=== PATIENT | female | born 1955 | race Caucasian/White ===

== ENCOUNTER 2016-09-04 12:44 | Inpatient (IN) | payer OTHER ==
[~2016-09-04] VITALS: Ht 162.6 cm; Wt 104.0 kg
[~2016-09-04 12:44] MED LIST: ALDACTONE25 MG PO; ALDACTONE50 MG PO; ALLOPURINOL100 MG PO; ASPIR 8181 M1 PO; ASPIR-TRIN325 M1 PO; ASPIRIN81 M1 PO; AVAPRO75 MG PO; Ascorbic Acid,Ester- PO; Aspirin E.C. PO; Aspirin PO; BACITRACIN28.4 GM TP; BENICAR HCT 201 EACH PO; BENICAR20 MG PO; BREO ELLIPTA I1 EACH IH; Benicar PO; CALCITRIOL0.25 MCG PO; CILOSTAZOL50 MG PO; CLOPIDOGREL75 MG PO; COL-RITE100 M1 PO; COLACE100 MG PO; Colace PO; Colchicine,Colcrys PO; DECARA50000 UNIT PO; Dulcolax PO; Effient PO; FERROCITE324 MG PO; FERROUS SULFAT325 MG PO; FLONASE16 G1 BOTH NARES; FOLIC ACID1 MG PO; FUROSEMIDE40 MG PO; Folvite PO; GABAPENTIN400 MG PO; GABAPENTIN800 MG PO; HABITROL,NICODE21 MG TD; HEMOCYTE324 MG PO; HYDROCHLOROTHIA25 MG PO; IRBESARTAN75 MG PO; LASIX20 MG PO; LEVAQUIN750 MG PO; LIDODERM 5% P1 PATCH TD; LISINOPRIL20 MG PO; LO-DOSE ASPIRIN81 M1 PO; LOPRESSOR25 MG PO; LORAZEPAM0.5 MG PO; Lasix PO; Lovenox SC; METOPROLOL SUC100 MG PO; METOPROLOL SUCC25 MG PO; METOPROLOL SUCC50 MG PO; METOPROLOL TART25 MG PO; METRONIDAZOLE500 MG PO; MICRO-K10 ME2 PO; MULTIVITAMIN1 EAC2 PO; Miralax, Glycolax PO; NAPROSYN500 MG PO; NEURONTIN300 MG PO; NITROGLYCERIN0.4 MG SL; NITROSTAT0.4 MG SL; Neurontin PO; OXYCODONE HCL PO; OXYCODONE HCL15 MG PO; OXYCONTIN30 MG PO; OXYCONTIN40 MG PO; Ocean Nasal 0.65% BOTH NARES; OxyCONTIN PO; PLAVIX75 MG PO; POTASSIUM CHLO10 ME4 PO; PRAVACHOL80 MG PO; PRAVASTATIN SOD80 MG PO; PREDNISONE10 MG PO; PROAIR HFA8.5 GM IH; PROMETHAZINE HC25 M1 PO; PROTONIX40 MG PO; Plavix PO; Pravachol PO; Protonix PO; Pyridoxine,Vitamin B PO; RANEXA1000 MG PO; RANEXA500 MG PO; ROCALTROL0.25 MCG PO; Senokot S,Pericolace PO; TOPROL XL25 MG PO; TOPROL XL50 MG PO; TRAMADOL HCL50 MG PO; TUMS500 MG PO; TYLENOL EXTRA500 MG PO; Theragran PO; Tylenol Extra Streng PO; VITAMIN B-6100 MG PO; VITAMIN D PO; VITAMIN D250000 UNIT PO; VITAMIN D35000 UNIT PO; VITAMIN D5000 UNIT PO; VITAMIN E400 UNIT PO; XARELTO1 EACH PO; XARELTO20 MG PO; ZESTRIL20 MG PO; Zestril,Prinivil PO; Zocor PO; oxyCODONE PO
[2016-09-04 13:31] LABS: EOSINOPHIL (%) 1.5 % (0-5); EOSINOPHIL COUNT 0.2 K/uL (0-0.3); HEMATOCRIT 31.6 % (36.0-46.0); IMMATURE GRANULOCYTE (%) 0.3 % (0.0-0.7); IMMATURE GRANULOCYTE COUNT 0.4 K/uL; LYMPHOCYTE COUNT 1.2 K/uL (1.0-2.8); MCH 29.8 PG (29.0-34.0); MCHC 31.3 G/DL (30.0-36.0); MCV 95.2 FL (83-99); MONOCYTE (%) 7.7 % (3-12); NEUTROPHIL (%) 80.9 % (45-76); PLATELET COUNT 230 K/uL (156-360); RBC DIS.WIDTH-CV 15.7 % (11.8-14.6); RBC DIS.WIDTH-SD 51.4 % (39-53); RED BLOOD COUNT 3.32 M/uL (3.80-5.20)
[2016-09-04 13:32] LABS: WHITE BLOOD COUNT 12.4 K/uL (4.1-10.2)
[2016-09-04 13:40] LABS: AMYLASE 33 IU/L (1-118); CHLORIDE 101 mEq/L (99-109); SODIUM 135 mEq/L (136-147)
[2016-09-04 13:42] LABS: GLUCOSE 121 mg/dL (70-99); INTER. NORMALIZED RATIO 1.4; PROTHROMBIN TIME 14.7 (9.2-11.2); PTT 40.6 (25-32)
[2016-09-04 13:43] LABS: ANION GAP 9 MEQ/L (2-14)
[2016-09-04 13:45] LABS: SERUM ETHYL ALCOHOL < 10 mg/dL
[2016-09-04 13:48] LABS: LIPASE 9 U/L (1.0-51.0)
[2016-09-04 13:50] LABS: GFR ESTIMATE (CALCULATED) 27 mL/min/; POTASSIUM 6.7 mEq/L (3.7-5.4); UREA NITROGEN (BUN) 40 mg/dL (9-23)
[2016-09-04 13:52] LABS: TROP-I INTERPRETATION NEGATIVE; TROPONIN-I 0.01 ng/mL (0.0-0.30)
[2016-09-04] MEDS ORDERED: METOPROLOL SUC100 MG PO (15:23)
[2016-09-04 15:25] LABS: BASE EXCESS -1.4 mEq/L (-3 to +3); BICARBONATE 28.1 mEq/L (22-26); CARBOXY HGB 1.2 % (0-5); METHEMOGLOBIN 0.6 % (0-1.5); PCO2 72 mm Hg (35-45); PO2 74 mm Hg (80-100)
[2016-09-04 15:26] LABS: COMMENTS - BLOOD GASES A+C+; DEVICE NRM; O2 FLOW 15 L/MIN; SITE RR
[2016-09-04] MEDS ORDERED: IRON325 M1 PO (15:26)
[2016-09-04] MEDS ORDERED: VITAMIN B-12250 MCG PO (15:27)
[2016-09-04] MEDS ORDERED: VITAMIN E200 UNI2 PO (15:27)
[2016-09-04 18:44] LABS: ADD MIUA? YES; BILIRUBIN NEGATIVE; BLOOD NEGATIVE; COLOR YELLOW ((YELLOW)); GLUCOSE (STRIP) NEGATIVE; KETONES NEGATIVE; LEUKOCYTES NEGATIVE; NITRITE NEGATIVE; PROTEIN (STRIP) NEGATIVE; SPECIFIC GRAVITY 1.011 (1.000-1.030); UROBILINOGEN 0.2 MG/DL (0.2-1.0)
[2016-09-04 18:52] LABS: ADD MEDTOX COMMENT Y; AMPHETAMINE NEGATIVE (500 ng/mL); BARBITURATES NEGATIVE (200 ng/mL); BENZODIAZEPINES NEGATIVE (150 ng/mL); COCAINE NEGATIVE (150 ng/mL); INTERNAL CONTROLS VALID? YES; METHADONE NEGATIVE (200 ng/mL); METHAMPHETAMINE NEGATIVE (500 ng/mL); OPIATES (MORPHINE) PRESUMPTIVE POSITIVE (100 ng/mL); OXYCODONE PRESUMPTIVE POSITIVE (100 ng/mL); PHENCYCLIDINE NEGATIVE (25 ng/mL); PROPOXYPHENE NEGATIVE (300 ng/mL); THC CANNABINOIDS NEGATIVE (50 ng/mL); TRICYCLIC ANTIDEPRESSANTS NEGATIVE (300 ng/mL)
[2016-09-04 19:16] LABS: BACTERIA 2+ /HPF; EPITHELIAL CELLS 1+ /HPF; HYALINE CASTS 0-5 /LPF; MUCUS TRACE /LPF; RED BLOOD CELLS 0-5 /HPF (0-5); UCUL ADDED? NO; WHITE BLOOD CELLS 0-5 /HPF (0-5)
[2016-09-04 19:42] LABS: ANION GAP 13 MEQ/L (2-14); CHLORIDE 103 mEq/L (99-109); CREATININE 1.6 mg/dL (0.6-1.3); GLUCOSE 119 mg/dL (70-99); ISTAT DEVICE 359068; POTASSIUM > 6.0 mEq/L (3.7-5.4); SODIUM 137 mEq/L (136-147); UREA NITROGEN (BUN) 41 mg/dL (9-23)
[2016-09-04 20:50] LABS: BASE EXCESS 4.8 mEq/L (-3 to +3); BICARBONATE 31.5 mEq/L (22-26); CARBOXY HGB 0.9 % (0-5); COMMENTS - BLOOD GASES C+; DEVICE NRBM; METHEMOGLOBIN 0.7 % (0-1.5); O2 FLOW 15 L/MIN; PCO2 57 mm Hg (35-45); PO2 92 mm Hg (80-100); SITE RB; pH 7.35 (7.35-7.45)
[2016-09-04 21:45] LABS: TROP-I INTERPRETATION INDETERMINATE; TROPONIN-I 0.47 ng/mL (0.0-0.30)
[2016-09-04 21:51] LABS: POTASSIUM 6.2 mEq/L (3.7-5.4)
[2016-09-04 22:07] LABS: TROP-I INTERPRETATION INDETERMINATE
[2016-09-04 23:00] VITALS: BP 135/71
[2016-09-04 23:01] VITALS: BP 135/71
[2016-09-04 23:15] VITALS: BP 129/71
[2016-09-04 23:30] VITALS: BP 147/66
[2016-09-04 23:37] LABS: BASE EXCESS -4.8 mEq/L (-3 to +3); BICARBONATE 27.3 mEq/L (22-26); CARBOXY HGB 1.7 % (0-5); METHEMOGLOBIN 1.1 % (0-1.5); PCO2 92 mm Hg (35-45); PO2 78 mm Hg (80-100); pH 7.08 (7.35-7.45)
[2016-09-04 23:38] LABS: DEVICE VENT; FI02 100 %; MECHANICAL RATE 12 resp/min; MODE AC; PEEP 18 CM/H20; TIDAL VOLUME 400 ML; TOTAL RESP RATE 12 resp/min
[2016-09-04 23:45] VITALS: BP 137/62
[2016-09-05] VITALS (23 sets, daily range): BP systolic 77–141; BP diastolic 33–62
[2016-09-05 00:42] LABS: METH RESISTANT S AUREUS PCR NEGATIVE (NEGATIVE)
[2016-09-05 00:45] LABS: PROBE CHECK PASS; SPECIMEN PROCESSING CONTROL PASS
[2016-09-05 02:32] LABS: BASE EXCESS 3.1 mEq/L (-3 to +3); CARBOXY HGB 1.3 % (0-5); METHEMOGLOBIN 1.3 % (0-1.5)
[2016-09-05 02:33] LABS: COMMENTS - BLOOD GASES C+; DEVICE VENT; FI02 100 %; MECHANICAL RATE 20 resp/min; MODE AC; PCO2 49 mm Hg (35-45); PEEP 18 CM/H20; PO2 96 mm Hg (80-100); SITE RR; TIDAL VOLUME 500 ML; TOTAL RESP RATE 21 resp/min; pH 7.38 (7.35-7.45)
[2016-09-05 03:34] LABS: CHLORIDE 104 mEq/L (99-109); POTASSIUM 5.5 mEq/L (3.7-5.4)
[2016-09-05 03:35] LABS: MAGNESIUM 1.8 mg/dL (1.3-2.7)
[2016-09-05 03:37] LABS: GLUCOSE 146 mg/dL (70-99)
[2016-09-05 03:38] LABS: ANION GAP 10 MEQ/L (2-14)
[2016-09-05 03:39] LABS: TOTAL BILIRUBIN 0.4 mg/dL (0.0-1.0)
[2016-09-05 03:41] LABS: ALKALINE PHOSPHATASE 82 IU/L (3-129); GFR ESTIMATE (CALCULATED) 29 mL/min/
[2016-09-05 03:42] LABS: UREA NITROGEN (BUN) 36 mg/dL (9-23)
[2016-09-05 03:45] LABS: TROP-I INTERPRETATION POSITIVE
[2016-09-05 03:48] LABS: SODIUM 142 mEq/L (136-147)
[2016-09-05 03:49] LABS: TROPONIN-I 9.15 ng/mL (0.0-0.30)
[2016-09-05 04:06] LABS: INFLUENZA A VIRAL ANTIGEN NEGATIVE; INFLUENZA B VIRAL ANTIGEN NEGATIVE
[2016-09-05 05:55] LABS: ANION GAP 12 MEQ/L (2-14); CHLORIDE 103 MEQ/L (99-109); GFR ESTIMATE (CALCULATED) 33 mL/min/; GLUCOSE 162 mg/dL (70-99); POTASSIUM 5.1 MEQ/L (3.7-5.4); SAMPLE HEMOLYSIS CHECK 0; SAMPLE ICTERIC CHECK 0; SAMPLE LIPEMIA CHECK 0; SODIUM 141 MEQ/L (136-147); UREA NITROGEN (BUN) 35 mg/dL (9-23)
[2016-09-05 05:57] LABS: HEMATOCRIT 34.2 % (36.0-46.0); MCH 28.7 PG (29.0-34.0); MCHC 30.4 G/DL (30.0-36.0); MCV 94.2 FL (83-99); MEAN PLAT.VOLUME 11.9 uM^3 (9.5-12.4); PLATELET COUNT 263 K/uL (156-360); RBC DIS.WIDTH-CV 15.7 % (11.8-14.6); RBC DIS.WIDTH-SD 53.5 % (39-53); RED BLOOD COUNT 3.63 M/uL (3.80-5.20)
[2016-09-05 06:06] LABS: WHITE BLOOD COUNT 19.3 K/uL (4.1-10.2)
[2016-09-05 10:36] LABS: MAGNESIUM 1.8 mg/dl (1.3-2.7)
[2016-09-05 11:57] LABS: BASE EXCESS 7.2 mEq/L (-3 to +3); BICARBONATE 31.2 mEq/L (22-26); CARBOXY HGB 0.7 % (0-5); METHEMOGLOBIN 1.4 % (0-1.5); PO2 81 mm Hg (80-100)
[2016-09-05 11:58] LABS: COMMENTS - BLOOD GASES NA C+; DEVICE VENT; FI02 70 %; MECHANICAL RATE 24 resp/min; MODE AC; PCO2 41 mm Hg (35-45); SITE RR; TIDAL VOLUME 400 ML; TOTAL RESP RATE 24 resp/min; pH 7.49 (7.35-7.45)
[2016-09-05 11:59] LABS: PEEP 16 CM/H20
[2016-09-05 12:49] LABS: INTER. NORMALIZED RATIO 1.3; PROTHROMBIN TIME 13.1 (9.2-11.2); PTT 35.1 (25-32)
[2016-09-05 12:58] LABS: CK-MB 50.9 ng/mL (0.0-4.9)
[2016-09-05 12:59] LABS: TROP-I INTERPRETATION POSITIVE
[2016-09-05 13:02] LABS: CREATINE KINASE 388 IU/L (1-294); TOTAL CK 388 IU/L (1-294)
[2016-09-05 13:29] LABS: TROPONIN-I 17.56 ng/mL (0.0-0.30)
[2016-09-05 17:10] LABS: POINT-OF-CARE METER ID UU14174217
[2016-09-05 23:48] LABS: POINT-OF-CARE METER ID UU13113803; POINT-OF-CARE USER ID LABHNS84
[2016-09-06] VITALS (17 sets, daily range): BP systolic 99–144; BP diastolic 41–77
[2016-09-06 03:38] LABS: CREATINE KINASE 266 IU/L (1-294); TOTAL CK 266 IU/L (1-294)
[2016-09-06 03:47] LABS: CK-MB 12.5 ng/mL (0.0-4.9)
[2016-09-06 03:54] LABS: PTT 69.6 (25-32)
[2016-09-06 05:23] LABS: POINT-OF-CARE METER ID UU14162636; POINT-OF-CARE USER ID LABHNS84
[2016-09-06 05:44] LABS: MEAN PLAT.VOLUME 12.4 uM^3 (9.5-12.4); PLATELET COUNT 268 K/uL (156-360)
[2016-09-06 06:19] LABS: TROP-I INTERPRETATION POSITIVE
[2016-09-06 06:37] LABS: HEMATOCRIT 27.7 % (36.0-46.0); MCHC 31.4 G/DL (30.0-36.0); MCV 92.3 FL (83-99); RBC DIS.WIDTH-CV 15.8 % (11.8-14.6); RBC DIS.WIDTH-SD 52.5 % (39-53); WHITE BLOOD COUNT 17.2 K/uL (4.1-10.2)
[2016-09-06 06:38] LABS: TROPONIN-I 6.82 ng/mL (0.0-0.30)
[2016-09-06 06:39] LABS: DELETE MACHINE DIFF? YES
[2016-09-06 08:09] LABS: ABS NEUTROPHIL COUNT 15.84; ANISOCYTOSIS OCC; PLAT.SUFFICIENCY ADEQUATE; TARGET CELLS RARE; USER ID CL
[2016-09-06 08:21] LABS: INTER. NORMALIZED RATIO 1.3
[2016-09-06 09:40] LABS: ANION GAP 16 MEQ/L (2-14); CHLORIDE 102 MEQ/L (99-109); CREATINE KINASE 187 IU/L (1-294); GFR ESTIMATE (CALCULATED) 33 mL/min/; GLUCOSE 165 mg/dL (70-99); MAGNESIUM 1.7 mg/dl (1.3-2.7); SAMPLE HEMOLYSIS CHECK 0; SAMPLE ICTERIC CHECK 0; SAMPLE LIPEMIA CHECK 0; SODIUM 145 MEQ/L (136-147); TOTAL CK 187 IU/L (1-294); UREA NITROGEN (BUN) 37 mg/dL (9-23)
[2016-09-06 12:00] LABS: POINT-OF-CARE METER ID UU13113731
[2016-09-07] VITALS (24 sets, daily range): BP systolic 100–145; BP diastolic 32–63
[2016-09-07 05:33] LABS: POINT-OF-CARE METER ID UU13113803
[2016-09-07 07:54] LABS: HEMATOCRIT 27.5 % (36.0-46.0); MCH 28.6 PG (29.0-34.0); MCHC 31.6 G/DL (30.0-36.0); MCV 90.5 FL (83-99); MEAN PLAT.VOLUME 11.8 uM^3 (9.5-12.4); PLATELET COUNT 259 K/uL (156-360); RBC DIS.WIDTH-CV 16.1 % (11.8-14.6); RED BLOOD COUNT 3.04 M/uL (3.80-5.20)
[2016-09-07 07:56] LABS: EOSINOPHIL (%) 0 % (0-5); IMMATURE GRANULOCYTE (%) 1.2 % (0.0-0.7); IMMATURE GRANULOCYTE COUNT 0.2 K/uL; LYMPHOCYTE COUNT 2.4 K/uL (1.0-2.8); MONOCYTE (%) 9.2 % (3-12); MONOCYTE COUNT 1.6 K/uL (0-0.8); NEUTROPHIL (%) 75.7 % (45-76); NEUTROPHIL COUNT 12.9 K/uL (1.8-6.4)
[2016-09-07 08:59] LABS: ANION GAP 14 MEQ/L (2-14); CHLORIDE 105 MEQ/L (99-109); GFR ESTIMATE (CALCULATED) 44 mL/min/; GLUCOSE 137 mg/dL (70-99); POTASSIUM 3.2 MEQ/L (3.7-5.4); SAMPLE HEMOLYSIS CHECK 0; SAMPLE ICTERIC CHECK 0; SAMPLE LIPEMIA CHECK 0; SODIUM 149 MEQ/L (136-147); UREA NITROGEN (BUN) 35 mg/dL (9-23)
[2016-09-07 09:07] LABS: MAGNESIUM 2.3 mg/dl (1.3-2.7)
[2016-09-07 11:49] LABS: POINT-OF-CARE METER ID UU13113731
[2016-09-07 15:49] LABS: ANION GAP 11 MEQ/L (2-14); CHLORIDE 102 MEQ/L (99-109); GFR ESTIMATE (CALCULATED) 41 mL/min/; GLUCOSE 155 mg/dL (70-99); POTASSIUM 3.4 MEQ/L (3.7-5.4); SAMPLE HEMOLYSIS CHECK 0; SAMPLE ICTERIC CHECK 0; SAMPLE LIPEMIA CHECK 0; SODIUM 144 MEQ/L (136-147); UREA NITROGEN (BUN) 34 mg/dL (9-23)
[2016-09-07 17:17] LABS: POINT-OF-CARE METER ID UU13113731
[2016-09-08] VITALS (24 sets, daily range): BP systolic 100–142; BP diastolic 39–98
[2016-09-08 01:00] LABS: HEMATOCRIT 26.7 % (36.0-46.0); MCH 29.4 PG (29.0-34.0); MCHC 32.2 G/DL (30.0-36.0); MCV 91.1 FL (83-99); MEAN PLAT.VOLUME 11.8 uM^3 (9.5-12.4); PLATELET COUNT 240 K/uL (156-360); RBC DIS.WIDTH-CV 15.9 % (11.8-14.6); RBC DIS.WIDTH-SD 50.3 % (39-53); RED BLOOD COUNT 2.93 M/uL (3.80-5.20); WHITE BLOOD COUNT 18.9 K/uL (4.1-10.2)
[2016-09-08 01:07] LABS: CHLORIDE 102 mEq/L (99-109); POTASSIUM 3.6 mEq/L (3.7-5.4); SODIUM 146 mEq/L (136-147)
[2016-09-08 01:11] LABS: ANION GAP 14 MEQ/L (2-14)
[2016-09-08 01:13] LABS: GFR ESTIMATE (CALCULATED) 41 mL/min/
[2016-09-08 01:14] LABS: UREA NITROGEN (BUN) 35 mg/dL (9-23)
[2016-09-08 01:17] LABS: GLUCOSE 92 mg/dL (70-99); MAGNESIUM 2.2 mg/dL (1.3-2.7)
[2016-09-08 01:54] LABS: EOSINOPHIL (%) 0.4 % (0-5); EOSINOPHIL COUNT 0.1 K/uL (0-0.3); HEMATOLOGY COMMENT 1 REV; IMMATURE GRANULOCYTE (%) 2.2 % (0.0-0.7); IMMATURE GRANULOCYTE COUNT 4.1 K/uL; LYMPHOCYTE COUNT 4.7 K/uL (1.0-2.8); MONOCYTE (%) 9.3 % (3-12); MONOCYTE COUNT 1.8 K/uL (0-0.8); NEUTROPHIL (%) 62.9 % (45-76); NEUTROPHIL COUNT 11.9 K/uL (1.8-6.4); USER ID SLU
[2016-09-08 05:45] LABS: POINT-OF-CARE METER ID UU13113748
[2016-09-08 05:51] LABS: HEMATOCRIT 26.8 % (36.0-46.0); MCH 29.1 PG (29.0-34.0); MCHC 31.7 G/DL (30.0-36.0); MCV 91.8 FL (83-99); NRBC (%) 0.5 /100 WBC (0-0); PLATELET COUNT 240 K/uL (156-360); RBC DIS.WIDTH-CV 16.2 % (11.8-14.6); RBC DIS.WIDTH-SD 53.6 % (39-53); RED BLOOD COUNT 2.92 M/uL (3.80-5.20); WHITE BLOOD COUNT 16.8 K/uL (4.1-10.2)
[2016-09-08 06:15] LABS: ANION GAP 13 MEQ/L (2-14); CHLORIDE 102 MEQ/L (99-109); GFR ESTIMATE (CALCULATED) 41 mL/min/; GLUCOSE 104 mg/dL (70-99); MAGNESIUM 1.8 mg/dl (1.3-2.7); POTASSIUM 3.8 MEQ/L (3.7-5.4); SAMPLE HEMOLYSIS CHECK 0; SAMPLE ICTERIC CHECK 0; SAMPLE LIPEMIA CHECK 0; SODIUM 146 MEQ/L (136-147); UREA NITROGEN (BUN) 33 mg/dL (9-23)
[2016-09-08 10:20] LABS: EOSINOPHIL (%) 0.9 % (0-5); EOSINOPHIL COUNT 0.2 K/uL (0-0.3); HEMATOLOGY COMMENT 1 SMEAR COMPATIBLE; IMMATURE GRANULOCYTE (%) 2.4 % (0.0-0.7); IMMATURE GRANULOCYTE COUNT 0.4 K/uL; LYMPHOCYTE COUNT 4.4 K/uL (1.0-2.8); MONOCYTE (%) 8.3 % (3-12); MONOCYTE COUNT 1.4 K/uL (0-0.8); NEUTROPHIL (%) 62.2 % (45-76); NEUTROPHIL COUNT 10.4 K/uL (1.8-6.4); USER ID STC
[2016-09-08 13:25] LABS: POINT-OF-CARE METER ID UU14174217
[2016-09-08 17:49] LABS: POINT-OF-CARE METER ID UU13113748
[2016-09-09] VITALS (21 sets, daily range): BP systolic 49–126; BP diastolic 32–62
[2016-09-09 00:22] LABS: POINT-OF-CARE METER ID UU14162636
[2016-09-09 05:57] LABS: HEMATOCRIT 27.1 % (36.0-46.0); MCH 29.9 PG (29.0-34.0); MCHC 31.7 G/DL (30.0-36.0); MCV 94.1 FL (83-99); MEAN PLAT.VOLUME 11.9 uM^3 (9.5-12.4); PLATELET COUNT 210 K/uL (156-360); RBC DIS.WIDTH-CV 16.2 % (11.8-14.6); RBC DIS.WIDTH-SD 54.4 % (39-53); RED BLOOD COUNT 2.88 M/uL (3.80-5.20); WHITE BLOOD COUNT 14.5 K/uL (4.1-10.2)
[2016-09-09 06:26] LABS: POINT-OF-CARE METER ID UU13113803
[2016-09-09 07:01] LABS: ANION GAP 11 MEQ/L (2-14); CHLORIDE 104 MEQ/L (99-109); GFR ESTIMATE (CALCULATED) 49 mL/min/; GLUCOSE 92 mg/dL (70-99); SAMPLE HEMOLYSIS CHECK 0; SAMPLE ICTERIC CHECK 0; SAMPLE LIPEMIA CHECK 0; SODIUM 143 MEQ/L (136-147); UREA NITROGEN (BUN) 30 mg/dL (9-23)
[2016-09-09 07:08] LABS: MAGNESIUM 2.6 mg/dl (1.3-2.7)
[2016-09-09 07:28] LABS: ABS NEUTROPHIL COUNT 10.16; ANISOCYTOSIS 1+; EOSINOPHIL (%) 2.6 % (0-5); EOSINOPHIL ABS CT 0.29; EOSINOPHIL COUNT 0.4 K/uL (0-0.3); HYPOCHROMASIA 1+; IMMATURE GRANULOCYTE (%) 3.7 % (0.0-0.7); IMMATURE GRANULOCYTE COUNT 0.5 K/uL; LYMPHOCYTE COUNT 3.2 K/uL (1.0-2.8); MONOCYTE (%) 7.8 % (3-12); MONOCYTE COUNT 1.1 K/uL (0-0.8); NEUTROPHIL (%) 63.9 % (45-76); NEUTROPHIL COUNT 9.3 K/uL (1.8-6.4); PLAT.SUFFICIENCY ADEQUATE; USER ID MCB
[2016-09-09 11:28] LABS: POINT-OF-CARE METER ID UU13113803
[2016-09-09 17:32] LABS: POINT-OF-CARE METER ID UU14162636
[2016-09-09 22:49] LABS: POINT-OF-CARE METER ID UU14162636
[2016-09-10] VITALS (9 sets, daily range): BP systolic 94–125; BP diastolic 30–60
[2016-09-10 06:12] LABS: MCH 30.6 PG (29.0-34.0); MCHC 31.8 G/DL (30.0-36.0); MCV 96.2 FL (83-99); MEAN PLAT.VOLUME 11.9 uM^3 (9.5-12.4); NRBC (%) 0.4 /100 WBC (0-0); PLATELET COUNT 197 K/uL (156-360); RBC DIS.WIDTH-CV 16.4 % (11.8-14.6); RBC DIS.WIDTH-SD 55.9 % (39-53); RED BLOOD COUNT 2.91 M/uL (3.80-5.20); WHITE BLOOD COUNT 16.1 K/uL (4.1-10.2)
[2016-09-10 06:33] LABS: BASOPHIL COUNT 0.1 K/uL (0-0.1); EOSINOPHIL (%) 4.1 % (0-5); EOSINOPHIL COUNT 0.7 K/uL (0-0.3); IMMATURE GRANULOCYTE (%) 4.6 % (0.0-0.7); IMMATURE GRANULOCYTE COUNT 0.7 K/uL; LYMPHOCYTE COUNT 2.8 K/uL (1.0-2.8); MONOCYTE (%) 6.3 % (3-12); NEUTROPHIL (%) 67.2 % (45-76); NEUTROPHIL COUNT 10.8 K/uL (1.8-6.4)
[2016-09-10 06:40] LABS: ANION GAP 12 MEQ/L (2-14); CHLORIDE 105 MEQ/L (99-109); GFR ESTIMATE (CALCULATED) 44 mL/min/; GLUCOSE 82 mg/dL (70-99); MAGNESIUM 2.3 mg/dl (1.3-2.7); POTASSIUM 3.5 MEQ/L (3.7-5.4); SAMPLE HEMOLYSIS CHECK 0; SAMPLE ICTERIC CHECK 0; SAMPLE LIPEMIA CHECK 0; SODIUM 144 MEQ/L (136-147); UREA NITROGEN (BUN) 30 mg/dL (9-23)
[2016-09-10 17:02] LABS: ADD MIUA? NO; BILIRUBIN NEGATIVE; BLOOD NEGATIVE; COLOR YELLOW ((YELLOW)); GLUCOSE (STRIP) NEGATIVE; KETONES NEGATIVE; LEUKOCYTES NEGATIVE; NITRITE NEGATIVE; PROTEIN (STRIP) NEGATIVE; SPECIFIC GRAVITY 1.011 (1.000-1.030); UCUL ADDED? NO; UROBILINOGEN 0.2 MG/DL (0.2-1.0)
[2016-09-11 05:30] VITALS: BP 94/40
[2016-09-11 06:46] LABS: HEMATOCRIT 27.8 % (36.0-46.0); MCHC 30.2 G/DL (30.0-36.0); MCV 95.9 FL (83-99); MEAN PLAT.VOLUME 11.3 uM^3 (9.5-12.4); NRBC (%) 0.2 /100 WBC (0-0); PLATELET COUNT 191 K/uL (156-360); RBC DIS.WIDTH-CV 16.7 % (11.8-14.6); RBC DIS.WIDTH-SD 55.8 % (39-53)
[2016-09-11 07:19] LABS: BASOPHIL COUNT 0.1 K/uL (0-0.1); EOSINOPHIL (%) 4.3 % (0-5); EOSINOPHIL COUNT 0.6 K/uL (0-0.3); IMMATURE GRANULOCYTE (%) 4.4 % (0.0-0.7); IMMATURE GRANULOCYTE COUNT 0.7 K/uL; LYMPHOCYTE COUNT 2.2 K/uL (1.0-2.8); MONOCYTE (%) 7.1 % (3-12); MONOCYTE COUNT 1.1 K/uL (0-0.8); NEUTROPHIL (%) 69.1 % (45-76); NEUTROPHIL COUNT 10.4 K/uL (1.8-6.4)
[2016-09-11 07:22] LABS: ALKALINE PHOSPHATASE 46 IU/L (3-129); ANION GAP 12 MEQ/L (2-14); CHLORIDE 106 MEQ/L (99-109); GFR ESTIMATE (CALCULATED) 38 mL/min/; MAGNESIUM 2.3 mg/dl (1.3-2.7); POTASSIUM 4.1 MEQ/L (3.7-5.4); SAMPLE HEMOLYSIS CHECK 0; SAMPLE ICTERIC CHECK 0; SAMPLE LIPEMIA CHECK 0; SODIUM 142 MEQ/L (136-147); TOTAL BILIRUBIN 0.7 MG/DL (0.0-1.0); UREA NITROGEN (BUN) 32 mg/dL (9-23)
[2016-09-11 07:28] LABS: GLUCOSE 104 mg/dL (70-99)
[2016-09-11 07:35] LABS: HEMATOLOGY COMMENT 1 SMEAR COMPATIBLE; PLAT.SUFFICIENCY ADEQUATE; USER ID TLW
[2016-09-11 07:45] VITALS: BP 116/58
[2016-09-11 09:17] LABS: HEMATOLOGY COMMENT 1 SMEAR COMPATIBLE; PLAT.SUFFICIENCY ADEQUATE; USER ID TLW
[2016-09-11 11:45] VITALS: BP 90/41
[2016-09-11 16:00] VITALS: BP 103/39
[2016-09-11 19:47] VITALS: BP 112/56
[2016-09-11 22:50] VITALS: BP 118/58
[2016-09-12 06:39] LABS: HEMATOCRIT 27.8 % (36.0-46.0); MCH 29.5 PG (29.0-34.0); MCHC 30.9 G/DL (30.0-36.0); MCV 95.2 FL (83-99); MEAN PLAT.VOLUME 11.7 uM^3 (9.5-12.4); NRBC (%) 0.2 /100 WBC (0-0); PLATELET COUNT 201 K/uL (156-360); RBC DIS.WIDTH-CV 16.5 % (11.8-14.6); RBC DIS.WIDTH-SD 54.8 % (39-53); RED BLOOD COUNT 2.92 M/uL (3.80-5.20); WHITE BLOOD COUNT 13.7 K/uL (4.1-10.2)
[2016-09-12 07:09] LABS: ANION GAP 11 MEQ/L (2-14); CHLORIDE 107 MEQ/L (99-109); GFR ESTIMATE (CALCULATED) 38 mL/min/; GLUCOSE 97 mg/dL (70-99); POTASSIUM 3.8 MEQ/L (3.7-5.4); SAMPLE HEMOLYSIS CHECK 0; SAMPLE ICTERIC CHECK 0; SAMPLE LIPEMIA CHECK 0; SODIUM 143 MEQ/L (136-147); UREA NITROGEN (BUN) 26 mg/dL (9-23)
[2016-09-12 07:21] LABS: BASOPHIL COUNT 0.1 K/uL (0-0.1); EOSINOPHIL (%) 3.8 % (0-5); EOSINOPHIL COUNT 0.5 K/uL (0-0.3); IMMATURE GRANULOCYTE (%) 4.5 % (0.0-0.7); IMMATURE GRANULOCYTE COUNT 0.6 K/uL; LYMPHOCYTE COUNT 2.3 K/uL (1.0-2.8); MONOCYTE COUNT 1.2 K/uL (0-0.8); NEUTROPHIL (%) 65.4 % (45-76)
[2016-09-12 07:49] LABS: HEMATOLOGY COMMENT 1 SMEAR COMPATIBLE; PLAT.SUFFICIENCY ADEQUATE
[2016-09-12 07:59] VITALS: BP 117/59
[2016-09-12] MEDS ORDERED: SPIRIVA RESPIMAT4 GM IH (11:53)
[2016-09-12] MEDS ORDERED: DUONEB 2.5-0.5 M3 ML PEP (11:53)
[2016-09-12] MEDS ORDERED: ADVAIR HFA120 INHALA IH (11:56)
[2016-09-12] MEDS ORDERED: OXYCONTIN30 MG PO (11:57)
[2016-09-12] MEDS ORDERED: OXYCODONE HCL5 MG PO (11:57)
[2016-09-12 15:54] VITALS: BP 121/57
== END 2016-09-12 17:15 | DRG 270 ==
LOC: EME 12:44 → 4EAST 22:02 → EDOF 22:02 → 4WEST 22:02 → 5EAST 22:02 → 4WEST 22:51 → 4EAST 09-10 22:31 → 5EAST 09-11 19:39
PROVIDERS: Emergency Medicine; Family Medicine; Hospitalist; Internal Medicine; Internal Medicine Cardiovascular Disease; Internal Medicine Critical Care Medicine; Internal Medicine Nephrology; Obstetrics & Gynecology
PROC: 5A1955Z Respiratory Ventilation, Greater than 96 Consecutive Hours (ICD-10-PCS; principal; 2016-09-05)
PROC: 05HM33Z Insertion of Infusion Device into Right Internal Jugular Vein, Percutaneous Approach (ICD-10-PCS; principal; 2016-09-05)
PROC: B2151ZZ Fluoroscopy of Left Heart using Low Osmolar Contrast (ICD-10-PCS; 2016-09-06)
PROC: B2111ZZ Fluoroscopy of Multiple Coronary Arteries using Low Osmolar Contrast (ICD-10-PCS; 2016-09-06)
PROC: 4A023N7 Measurement of Cardiac Sampling and Pressure, Left Heart, Percutaneous Approach (ICD-10-PCS; 2016-09-06)
PROC: 5A02210 Assistance with Cardiac Output using Balloon Pump, Continuous (ICD-10-PCS; 2016-09-06)
DX: I21.4 Non-ST elevation (NSTEMI) myocardial infarction (principal); J96.21 Acute and chronic respiratory failure with hypoxia; J18.9 Pneumonia, unspecified organism; I50.21 Acute systolic (congestive) heart failure; R57.0 Cardiogenic shock; E87.1 Hypo-osmolality and hyponatremia; E87.0 Hyperosmolality and hypernatremia; E87.3 Alkalosis; Z68.41 Body mass index [BMI] 40.0-44.9, adult; I25.10 Atherosclerotic heart disease of native coronary artery without angina pectoris; E87.5 Hyperkalemia; E83.51 Hypocalcemia; I44.7 Left bundle-branch block, unspecified; D63.1 Anemia in chronic kidney disease; I12.9 Hypertensive chronic kidney disease with stage 1 through stage 4 chronic kidney disease, or unspecified chronic kidney disease; E11.22 Type 2 diabetes mellitus with diabetic chronic kidney disease; N18.3 Chronic kidney disease, stage 3 (moderate); J44.9 Chronic obstructive pulmonary disease, unspecified; E11.40 Type 2 diabetes mellitus with diabetic neuropathy, unspecified; Z89.521 Acquired absence of right knee; E11.65 Type 2 diabetes mellitus with hyperglycemia; K21.9 Gastro-esophageal reflux disease without esophagitis; E66.9 Obesity, unspecified; Z86.718 Personal history of other venous thrombosis and embolism; Z88.0 Allergy status to penicillin; Z98.62 Peripheral vascular angioplasty status; Z99.81 Dependence on supplemental oxygen; Z88.2 Allergy status to sulfonamides; Z91.041 Radiographic dye allergy status; Z98.61 Coronary angioplasty status; Z87.891 Personal history of nicotine dependence; Z79.01 Long term (current) use of anticoagulants; Z79.02 Long term (current) use of antithrombotics/antiplatelets; Z82.49 Family history of ischemic heart disease and other diseases of the circulatory system; E78.00 Pure hypercholesterolemia, unspecified; R33.9 Retention of urine, unspecified
CPT/HCPCS: 36600; 71010; 71250; 76705; 80047; 80048; 80048 91; 80053; 81003; 82150; 82550; 82550 91; 82553; 82565; 82803; 82948; 83605; 83690; 83735; 83880; 84100; 84484; 84520; 84999; 85025; 85025 91; 85027; 85347; 85610; 85730; 86850; 86900; 86901; 87040; 87070; 87205; 87502; 87641; 93005; 93306; 93970; 94002; 94003; 94010; 94640; 94640 76; 94760; 94799; 99281; 99285; C1725; C1769; C1887; C1894; C9113; G0008; G0480; J0456; J0610; J1120; J1200; J1644; J1815; J1940; J2060; J2250; J2270; J2405; J2543; J2704; J2765; J2920; J2930; J3010; J3370; J3475; J3480; J7030; J7040; J7050; J7070; P9045